=== PATIENT | male | born 1990 | race Caucasian/White ===

== ENCOUNTER 2021-04-21 13:02 | Outpatient (CLI) | payer OTHER | END 2021-04-21 13:10 | disposition home or self-care (01) | LOC: LAB 13:02 | PROVIDERS: ATTEND Obstetrics & Gynecology | DX: Z20.818 Contact with and (suspected) exposure to other bacterial communicable diseases (principal); Z20.828 Contact with and (suspected) exposure to other viral communicable diseases ==

== ENCOUNTER 2021-04-23 08:42 | Outpatient (CLI) | payer OTHER | END 2021-04-23 08:46 | disposition home or self-care (01) | LOC: LAB 08:42 | PROVIDERS: ATTEND Pediatrics Neonatal-Perinatal Medicine | DX: Z03.818 Encounter for observation for suspected exposure to other biological agents ruled out (principal) ==